=== PATIENT | male | born 1980 | race Caucasian/White ===

== ENCOUNTER 2019-12-21 19:01 | Emergency (ER) | payer OTHER ==
[~2019-12-21] VITALS: Ht 182.9 cm; Wt 81.8 kg
[2019-12-21 19:11] VITALS: BP 127/75
== END 2019-12-21 19:35 ==
LOC: ER 19:02
DX: S16.1XXA Strain of muscle, fascia and tendon at neck level, initial encounter (principal); F10.129 Alcohol abuse with intoxication, unspecified; V99.XXXA Unspecified transport accident, initial encounter; Y93.89 Activity, other specified; Y92.89 Other specified places as the place of occurrence of the external cause; Y99.8 Other external cause status; Y90.9 Presence of alcohol in blood, level not specified
CPT/HCPCS: 99283

== ENCOUNTER 2022-11-02 09:18 | Emergency (ER) | payer MEDICAID ==
[~2022-11-02] VITALS: Ht 182.9 cm; Wt 77.3 kg
[2022-11-02 09:24] VITALS: BP 168/58
--- NOTE | 2022-11-02 09:28 | NUR ---
Pt has right hand warpped at this time and bleeding appears to be controlled.
[2022-11-02] MEDS ORDERED: LORazepam 1 MG tablet PO ONE (10:00)
== END 2022-11-02 11:12 | disposition home or self-care (01) ==
LOC: ER 09:18
DX: S60.410A Abrasion of right index finger, initial encounter (principal); F15.90 Other stimulant use, unspecified, uncomplicated; Z72.89 Other problems related to lifestyle; Z79.899 Other long term (current) drug therapy; W26.0XXA Contact with knife, initial encounter; Y93.89 Activity, other specified; Y92.89 Other specified places as the place of occurrence of the external cause; Y99.8 Other external cause status
CPT/HCPCS: 73130; 99283; A6449